=== PATIENT | male | born 1980 ===

== ENCOUNTER 2021-04-05 16:55 | Emergency (ER) | payer SELFPAY ==
[2021-04-05 17:30] VITALS: BP 159/91; PULSE 86; RESP 18; TEMP 37; O2SAT 98; BMI 34.9
== END 2021-04-05 23:14 | disposition left against medical advice (07) ==
PROVIDERS: Emergency Provider Emergency Medicine
DX: G43.909 Migraine, unspecified, not intractable, without status migrainosus (principal)
CPT/HCPCS: 99281; 99282